=== PATIENT | female | born 1980 | race Caucasian/White ===

== ENCOUNTER 2023-02-03 06:29 | Day surgery (SDC) | payer OTHER ==
--- NOTE | 2023-02-02 06:33 | P.HPOB ---
History of Present Illness H&P Date: 02/02/23 Chief Complaint: Menorrhagia, requesting endometrial ablation This patient is a pleasant 42-year-old 2 para 2 female whose had long- standing menorrhagia is requesting endometrial ablation for treatment. Patient's had a normal pelvic ultrasound in the past. She has no intermenstrual bleeding but when she does have her menstrual cycle lasts 7-10 days and sometimes she goes through 2 boxes of super tampons and double protection. Patient has taken oral contraceptives in the past and continues to have bleeding problems and therefore is requesting endometrial ablation at this time. Review of Systems Genitourinary: Reports as per HPI, Reports menorrhagia Menstruation: Reports as per HPI, Reports menses 8 or > days, Reports period heavy Past Medical History Additional Past Medical History / Comment(s): SEASONAL ALLERGIES, patient has a history of kidney stones. History of Any Multi-Drug Resistant Organisms: None Reported Past Surgical History: Section, Tubal Ligation Additional Past Surgical History / Comment(s): KIDNEY STONE REMOVAL. Past Anesthesia/Blood Transfusion Reactions: Motion Sickness Past Psychological History: Anxiety Smoking Status: Former smoker, Vaper Past Alcohol Use History: Occasional Additional Past Alcohol Use History / Comment(s): SMOKED FOR OVER Past Drug Use History: None Reported - Past Family History Mother Family Medical History: No Reported History Medications and Allergies Home Medications Medication Instructions Recorded Confirmed Type ALPRAZolam [Xanax] 0.5 mg PO HS 01/31/23 01/31/23 History Loratadine [Claritin] 10 mg PO DAILY 01/31/23 01/31/23 History Naproxen Sodium [Aleve] 220 - 440 mg PO Q6H PRN 01/31/23 01/31/23 History valACYclovir HCL [Valacyclovir] 500 mg PO HS 01/31/23 01/31/23 History Allergies Allergy/AdvReac Type Severity Reaction Status Date / Time acetaminophen Allergy CONVULSIONS, Verified 01/31/23 12:00 [From Darvocet-N] N & V hazelnut Allergy Dyspnea Verified 01/31/23 12:00 lidocaine Allergy Rapid Verified 01/31/23 12:00 Heart Rate propoxyphene Allergy CONVULSIONS, Verified 01/31/23 12:00 [From Darvocet-N] N & V Penicillins AdvReac Nausea & Verified 01/31/23 12:00 Vomiting FLU VACCINE Allergy MIGRAINE Uncoded 01/31/23 12:00 Exam - OBG Physical Exam Abdomen: bowel sounds normal, no diffuse tenderness, no bruit present, no guarding noted, no hepatomegaly, no splenomegaly, no mass Vulva: both: normal Vagina: normal moisture, no discharge Cervix: no lesion, no discharge Uterus: normal size, normal contour Adnexa: both: normal Results Previous transvaginal ultrasound was normal Assessment and Plan Assessment: This is a pleasant 42-year-old 2 para 2 female with long-standing menorrhagia and negative evaluation requesting endometrial ablation for treatment. Plan is hysteroscopy, D&C, and NovaSure endometrial ablation. Patient and I have discussed the surgery and risks including risks of infection, bleeding, possible uterine perforation, and/or thermal injury. All the patient's questions are answered and a written consent is obtained. (1) Menorrhagia Status: Acute Code(s): N92.0 - EXCESSIVE AND FREQUENT MENSTRUATION WITH REGULAR CYCLE SNOMED Code(s): 157522308
[~2023-02-03 06:29] MED LIST: Pre Op ABX Message 1 EACH MISC MISCELLANE ONE
[2023-02-03] MEDS ORDERED: ONDANSETRON 4 MG/2 ML VIAL IVP ONE (06:30)
[2023-02-03] MEDS ORDERED: LACTATED RINGERS 1,000 ML IV SCH (06:30)
[2023-02-03] MEDS ORDERED: DEXAMETHASONE SOD PHOSPHATE 4 MG/ML 1 ML VIAL IV ONE (06:30)
[2023-02-03] MEDS ORDERED: LACTATED RINGERS 1,000 ML IV ONE (06:40)
[2023-02-03] MEDS ORDERED: MIDAZOLAM 2 MG/2 ML VIAL ONE (07:20)
[2023-02-03] MEDS ORDERED: PROPOFOL 10 MG/ML 20 ML VIAL IV ONE (07:20)
[2023-02-03] MEDS ORDERED: KETOROLAC 15 MG/ML 1 ML VIAL ONE (07:20)
[2023-02-03] MEDS ORDERED: fentaNYL (PF) 50 MCG/ML 2 ML AMP ONE (07:20)
--- NOTE | 2023-02-03 07:57 | P.OP ---
Date of Procedure: 02/03/23 Preoperative Diagnosis: Menorrhagia Postoperative Diagnosis: Same Procedure(s) Performed: #1: Hysteroscopy. #2: Dilation and curettage. #3: NovaSure endometrial ablation Anesthesia: other (LMA) Surgeon: Leroy Aleln Estimated Blood Loss (ml): 10 Urine output (ml): 25 Pathology: other (Uterine curettings) Condition: stable Disposition: PACU Indications for Procedure: Please see dictated H&P for intimate details of this patient's admission. Brief summary this pleasant 42-year-old 2 para 2 female long-standing menorrhagia requesting NovaSure endometrial ablation for treatment. Patient understands this procedure and risks and risks of infection, bleeding, possible uterine perforation, and/or thermal injury. All the patient's questions are answered and a written consent is obtained. Operative Findings: This patient normal appearing endometrial cavity Description of Procedure: This patient is taken to the operating room where she is laid in the supine position. She subsequent undergoes general anesthesia without incident. With an adequate level of anesthesia she's placed in dorsal lithotomy position. Vaginal perineal prep and drape. Examination under anesthesia shows a slightly retroverted uterus of normal size. A weighted speculum was placed the posterior vagina. The bladder is then drained for 25 mL of clear urine. An Allis clamp was then placed on the anterior lip of the cervix. The uterus is then sounded to 8 cm retroverted. Gentle dilation is then the cervix to allow the hysteroscope easily and the uterine cavity. Hysteroscopy is performed using saline solution. Uterine cavity is visualized appears to be normal without polyps or fibroids. Its length was calculated to be 6 cm. With this done, cervix is dilated more to allow a small curette easily uterine cavity. A gentle but thorough 4 quadrant curettage is then done. The NovaSure device is then opened and set at a length of 6.0 cm. It is then seated in place and opens up to a width of 4.7 cm. After passing the cavity integrity test, is enabled and 155 W setting for 70 seconds. NovaSure device is then removed and appears to be intact. Hysteroscopy is performed again and the uterine cavity appears to be completely ablated up to the endocervix. This completed the procedure is ended. The Allis clamp and weighted speculum removed. All counts are correct 3. Patient is awakened from anesthesia and taken recovery room in satisfactory condition. There are no complications.
[2023-02-03] MEDS: HYDROmorphone 0.5 MG/0.5 ML SYRINGE IVP PRN ×2 (08:03→08:14)
[2023-02-03 08:13] VITALS: TEMP 97.8
[2023-02-03 08:37] VITALS: RESP 16
[2023-02-03] MEDS ORDERED: ACETAMINOPHEN IV (For NPO) 1,000 MG/100 ML VIAL IVPB ONE (09:30)
[2023-02-03 11:01] VITALS: BP 111/88; PULSE 78
== END 2023-02-03 10:45 | disposition home or self-care (01) ==
LOC: OR 06:29
PROVIDERS: ATTEND Obstetrics & Gynecology
DX: N92.0 Excessive and frequent menstruation with regular cycle (principal); F41.9 Anxiety disorder, unspecified; Z87.442 Personal history of urinary calculi; Z98.51 Tubal ligation status; Z98.890 Other specified postprocedural states; Z87.891 Personal history of nicotine dependence; Z79.899 Other long term (current) drug therapy; Z88.0 Allergy status to penicillin
CPT/HCPCS: 58563; 81025; 88305; J2250; J1100; J2405; J3010; J0131; J1885; J2704; J1170